=== PATIENT | male | born 1955 | race Caucasian/White ===

== ENCOUNTER 2021-03-25 14:36 | Emergency (ER) | payer OTHER ==
[~2021-03-25] VITALS: Ht 180.3 cm; Wt 97.3 kg
[2021-03-25 16:09] LABS: ALANINE AMINOTRANSFERASE 43 U/L (12-78); ALBUMIN 4.1 G/DL (3.4-5.0); ALBUMIN/GLOBULIN RATIO 1.1 (1.1-1.5); ALKALINE PHOSPHATASE 44 IU/L (46-116); ANION GAP 14 (8-16); ASPARTATE AMINO TRANSFERASE 23 U/L (10-37); BILIRUBIN,TOTAL 1.2 MG/DL (0.1-1.0); BLOOD UREA NITROGEN 38 MG/DL (7-18); BUN/CREATININE RATIO 16.3 (5.4-32.0); CHLORIDE 101 MMOL/L (99-107); CREATININE 2.33 MG/DL (0.60-1.10); GLUCOSE 104 MG/DL (70-104); POTASSIUM 3.2 MMOL/L (3.5-5.1); SODIUM 139 MMOL/L (135-145); TOTAL CARBON DIOXIDE 24.1 MMOL/L (24-32); eGFR 28 ML/MIN
--- NOTE | 2021-03-25 16:12 | NUR ---
PATIENT'S DAUGHTER ARLENE PHONE NUMBER [phone]
[2021-03-25 16:20] LABS: ETHANOL < 0.010 GM/DL (0.0-0.010)
[2021-03-25 16:45] LABS: BASOPHILS # (AUTO) 0.1 X10'3 (0-0.2); BASOPHILS % (AUTO) 0.7 % (0-1); EOSINOPHILS # (AUTO) 0.2 X10'3 (0-0.9); EOSINOPHILS % (AUTO) 1.8 % (0-6); HEMATOCRIT 45.4 % (42.0-52.0); HEMOGLOBIN 15.9 g/dl (14.0-17.9); LYMPHOCYTES # (AUTO) 2.2 X10'3 (1.1-4.8); LYMPHOCYTES % (AUTO) 21.9 % (21-51); MEAN CORPUSCULAR HEMOGLOBIN 31.4 PG (27.0-31.0); MEAN CORPUSCULAR HGB CONC 35.1 g/dL (33.0-36.5); MEAN CORPUSCULAR VOLUME 89.4 FL (78-98); MEAN PLATELET VOLUME 9.3 FL (7.4-10.4); MONOCYTES # (AUTO) 0.9 X10'3 (0-0.9); MONOCYTES % (AUTO) 9.3 % (2-12); NEUTROPHILS # (AUTO) 6.5 X10'3 (1.8-7.7); NEUTROPHILS % (AUTO) 66.3 % (42-75); PLATELET COUNT 191 X10'3 (140-440); RED BLOOD COUNT 5.08 X10'6 (4.70-6.10); RED CELL DISTRIBUTION WIDTH 12.6 % (11.5-14.5); WHITE BLOOD COUNT 9.8 X10'3 (4.5-11.0)
[2021-03-25 16:58] LABS: CLARITY,URINE CLEAR (Clear); COLOR,URINE YELLOW (Yellow); GLUCOSE, URINE NEGATIVE (Neg); KETONES,URINE NEGATIVE (Neg); LEUKOCYTE ESTERASE ,URINE NEGATIVE (Neg); NITRITES, URINE NEGATIVE (Neg); OCCULT BLOOD,URINE NEGATIVE (Neg); PH,URINE 6.5 (4.8-8.0); PROTEIN,URINE NEGATIVE (Neg); UROBILINOGEN,URINE 0.2 E.U/dL (0.2-1.0)
[2021-03-25 17:00] LABS: UA COLLECTION TYPE CLN CATCH MIDSTREAM; URINE AMPHETAMINE SCREEN NEGATIVE (Neg); URINE BARBITUATE SCREEN NEGATIVE (Neg); URINE BENZODIAZEPINES SCREEN POSITIVE (Neg); URINE CANNABINOID SCREEN NEGATIVE (Neg); URINE COCAINE SCREEN NEGATIVE (Neg); URINE METHADONE SCREEN NEGATIVE (Neg); URINE OPIATE SCREEN NEGATIVE (Neg); URINE PHENCYCLIDINE SCREEN NEGATIVE (Neg)
[2021-03-25] MEDS ORDERED: potassium Cl 20 mEq SR tablet PO STA (17:23)
[2021-03-25] MEDS ORDERED: AMLO10TA PO (18:15)
[2021-03-25] MEDS ORDERED: LOP12.5T PO (18:17)
[2021-03-25] MEDS ORDERED: LEVO125C4 PO (18:18)
[2021-03-25] MEDS ORDERED: DOCU-148 PO (18:21)
[2021-03-25] MEDS ORDERED: FAMO20TA8 PO (18:23)
[2021-03-25] MEDS ORDERED: QUET25TA34 PO (18:24)
[2021-03-25] MEDS ORDERED: DIAZ-351 PO (18:25)
[2021-03-25] MEDS ORDERED: LEVO125T PO (19:46)
--- NOTE | 2021-03-25 20:00 | NUR ---
pt's daughter is sitting with pt, comforting him, assisting with his care.
[2021-03-25] MEDS: docusate sod 100mg capsule PO SCH (20:04)
[2021-03-25] MEDS: metoprolol tartrate 25mg tablet PO SCH (20:05)
[2021-03-25] MEDS ORDERED: diazepam 5mg tablet PO PRN (20:25)
[2021-03-25] MEDS ORDERED: QUEtiapine 25mg tablet PO SCH (21:00)
--- NOTE | 2021-03-25 21:47 | NUR ---
Pt is up to use the restroom. pt walks with a walker independently, no needs identified.
--- NOTE | 2021-03-25 23:22 | NUR ---
Pt is awake, daughter is at bedside. no s/s of distress noted.
--- NOTE | 2021-03-26 00:21 | NUR ---
Pt is sleeping, no s/s of distress noted.
--- NOTE | 2021-03-26 02:07 | NUR ---
pt resting quietly on his bed
--- NOTE | 2021-03-26 03:41 | NUR ---
pt is asleep, rr unlabored.
--- NOTE | 2021-03-26 05:55 | NUR ---
Pt is sleeping, no s/s of distress noted. Daughter is at bedside.
[2021-03-26 06:05] VITALS: BP_DIAS 87
--- NOTE | 2021-03-26 07:00 | NUR ---
Pt up to use the bathroom and was able to answer assessment questions. Pt then returned to sleep.
[2021-03-26] MEDS ORDERED: levoTHYROXINE 125mcg tablet PO SCH (08:00)
[2021-03-26] MEDS ORDERED: amLODIPine 5mg tablet PO SCH (08:00)
[2021-03-26] MEDS: docusate sod 100mg capsule PO SCH (08:03)
[2021-03-26 08:04] VITALS: BP_SYST 125
[2021-03-26] MEDS: metoprolol tartrate 25mg tablet PO SCH (08:04)
--- NOTE | 2021-03-26 09:00 | NUR ---
Pt returned to sleep after eating some breakfast. Daughter, [place] had been at bedside all noc and sat with him to encourage eating his breakfast, then she left for home. Pt now has returned to sleep.
--- NOTE | 2021-03-26 11:00 | NUR ---
Pt resting in bed, appearing to be sleeping on and off with at bedside. No complaints.
--- NOTE | 2021-03-26 13:00 | NUR ---
Patient sitting quietly in bed eating lunch. No signs/symptoms of distress.
[2021-03-26] MEDS ORDERED: famotidine 20mg tablet PO SCH (17:00)
[2021-03-27] MEDS ORDERED: TEST75GE TOP (14:54)
== END 2021-03-26 15:05 ==
LOC: ER 14:37
DX: F79 Unspecified intellectual disabilities (principal); E87.6 Hypokalemia; N18.9 Chronic kidney disease, unspecified; F31.9 Bipolar disorder, unspecified; K59.00 Constipation, unspecified; R53.1 Weakness; Z79.899 Other long term (current) drug therapy
CPT/HCPCS: 36415; 80053; 80305; 80320; 81003; 84443; 85025; 99285

== ENCOUNTER 2022-02-21 11:32 | Emergency (ER) | payer OTHER ==
[~2022-02-21] VITALS: Ht 182.9 cm; Wt 82.0 kg
[~2022-02-21 11:32] MED LIST: AMLO10TA PO; LEVO125T8 PO; LURA60TA PO; TEST75GE TOP; TRAZ-251 PO
[2022-02-21] MEDS ORDERED: normal saline 1000ML IV soln IV ONE (11:50)
[2022-02-21 12:46] LABS: BASOPHILS # (AUTO) 0.1 X10'3 (0-0.2); BASOPHILS % (AUTO) 0.6 % (0-1); EOSINOPHILS # (AUTO) 0.1 X10'3 (0-0.9); EOSINOPHILS % (AUTO) 0.9 % (0-6); HEMOGLOBIN 14.6 g/dl (14.0-17.9); LYMPHOCYTES # (AUTO) 2.5 X10'3 (1.1-4.8); LYMPHOCYTES % (AUTO) 26.3 % (21-51); MEAN CORPUSCULAR HEMOGLOBIN 31.4 PG (27.0-31.0); MEAN CORPUSCULAR HGB CONC 35.5 g/dL (33.0-36.5); MEAN CORPUSCULAR VOLUME 88.5 FL (78-98); MEAN PLATELET VOLUME 8.8 FL (7.4-10.4); MONOCYTES # (AUTO) 0.9 X10'3 (0-0.9); MONOCYTES % (AUTO) 9.1 % (2-12); NEUTROPHILS # (AUTO) 5.9 X10'3 (1.8-7.7); NEUTROPHILS % (AUTO) 63.1 % (42-75); PLATELET COUNT 182 X10'3 (140-440); RED BLOOD COUNT 4.63 X10'6 (4.70-6.10); RED CELL DISTRIBUTION WIDTH 12.5 % (11.5-14.5); WHITE BLOOD COUNT 9.4 X10'3 (4.5-11.0)
[2022-02-21 12:49] LABS: ALANINE AMINOTRANSFERASE 35 U/L (12-78); ALBUMIN/GLOBULIN RATIO 1.1 (1.1-1.5); ALKALINE PHOSPHATASE 42 IU/L (46-116); ANION GAP 18 (8-16); ASPARTATE AMINO TRANSFERASE 19 U/L (10-37); BILIRUBIN,TOTAL 1.1 MG/DL (0.1-1.0); BLOOD UREA NITROGEN 22 MG/DL (7-18); BUN/CREATININE RATIO 8.6 (5.4-32.0); CALCIUM 10.5 MG/DL (8.5-10.1); CHLORIDE 108 MMOL/L (99-107); CREATININE 2.56 MG/DL (0.60-1.10); GLUCOSE 86 MG/DL (70-104); POTASSIUM 3.5 MMOL/L (3.5-5.1); SODIUM 143 MMOL/L (135-145); TOTAL CARBON DIOXIDE 17.1 MMOL/L (24-32); TOTAL PROTEIN 7.5 G/DL (6.4-8.2); eGFR 25 ML/MIN
[2022-02-21 12:53] LABS: LIPASE 137 U/L (73-393); MAGNESIUM 2.1 MG/DL (1.5-2.4)
[2022-02-21] MEDS ORDERED: ALPRAZolam 0.5mg tablet PO ONE (14:05)
[2022-02-21 14:45] LABS: CLARITY,URINE CLEAR (Clear); COLOR,URINE YELLOW (Yellow); GLUCOSE, URINE NEGATIVE (Neg); KETONES,URINE 15 mg/dl (Neg); LEUKOCYTE ESTERASE ,URINE NEGATIVE (Neg); NITRITES, URINE NEGATIVE (Neg); OCCULT BLOOD,URINE TRACE-INTACT (Neg); PROTEIN,URINE NEGATIVE (Neg); UROBILINOGEN,URINE 0.2 E.U/dL (0.2-1.0)
[2022-02-21 14:51] LABS: UA COLLECTION TYPE URINAL
[2022-02-21 14:52] LABS: BACTERIA,URINE NONE SEEN /HPF (Neg); WBC,URINE 0-4 /HPF (0-4)
[2022-02-21 14:53] LABS: MUCUS STRANDS NONE SEEN /LPF (Neg); SQUAMOUS EPITHELIAL CELL,UR NONE SEEN /LPF (FEW)
[2022-02-21] MEDS ORDERED: traMADol 50MG tablet PO ONE (15:20)
[2022-02-21] MEDS ORDERED: cyclobenzaprine 10mg tablet PO ONE (15:20)
[2022-02-21] MEDS ORDERED: TRAM50TA2 PO (15:20)
[2022-02-21 15:58] VITALS: BP 113/61
== END 2022-02-21 16:03 | disposition home or self-care (01) ==
LOC: ER 11:32
DX: E86.0 Dehydration (principal); R05.9 Cough, unspecified; K59.00 Constipation, unspecified; R10.84 Generalized abdominal pain; R50.9 Fever, unspecified; M54.89 Other dorsalgia; F31.9 Bipolar disorder, unspecified; Z79.899 Other long term (current) drug therapy; W19.XXXA Unspecified fall, initial encounter; Y93.89 Activity, other specified; Y92.89 Other specified places as the place of occurrence of the external cause; Y99.8 Other external cause status
CPT/HCPCS: 36415; 70450; 71045; 74176; 80053; 81001; 83605; 83690; 83735; 84145; 84484; 85025; 87040; 96360; 96361; 99285; J7030